=== PATIENT | female | born 1970 | race Caucasian/White ===

== ENCOUNTER 2016-09-08 09:38 | Day surgery (SDC) | payer BC, OTHER ==
[2016-09-08] VITALS (14 sets, daily range): BP systolic 123–176; BP diastolic 77–101; PULSE 68–86; RESP 6–27; Ht 154.9 cm; Wt 56.7 kg
[~2016-09-08] VITALS: Ht 154.9 cm; Wt 56.7 kg
[2016-09-08] MEDS ORDERED: OXYC-279 PO (10:09)
[2016-09-08] MEDS ORDERED: TRAM-40 PO (10:09)
--- NOTE | 2016-09-08 10:19 | HPN ---
Date/Time of Note Date/Time of Note DATE: 09/08/16 TIME: 10:19 Interval H&P Admission Note Pt. seen H&P reviewed: No system changes MELYSSA VERAS Sep 08, 2016 10:19
[2016-09-08] MEDS ORDERED: MIDAZOLAM 1 MG/ML 2 ML INJ ONE ×2 (11:29→13:30)
[2016-09-08] MEDS ORDERED: PROPOFOL 20 ML ONE (11:29)
[2016-09-08] MEDS ORDERED: FENTAnyl 50 MCG/ML VIAL ONE ×3 (11:37→13:21)
[2016-09-08] MEDS ORDERED: DEXAMETHASONE 4 MG/ML 1 ML INJ ONE ×2 (11:41→12:49)
[2016-09-08] MEDS ORDERED: ONDANSETRON 4 MG INJ ONE (11:41)
[2016-09-08] MEDS ORDERED: BUPIVACAINE 0.5% (SDV) 30 ML INJ ONE (11:50)
[2016-09-08] MEDS ORDERED: HYDROmorphONE 2 MG/ML SYG ONE (12:28)
[2016-09-08] MEDS ORDERED: ROPIVACAINE 0.5 % 30 ML VIAL ONE (12:48)
[2016-09-08] MEDS ORDERED: ONDANSETRON 4 MG INJ IV PRN (13:00)
[2016-09-08] MEDS ORDERED: HYDROmorphONE (0.2 MG/ML) 10ML SYG IV PRN ×2 (13:00)
[2016-09-08] MEDS ORDERED: KETOROLAC 30 MG INJ ONE (13:21)
--- NOTE | 2016-09-08 15:44 | RADRPT ---
PROCEDURE: Intraoperative imaging of the right wrist with fluoroscopy. CLINICAL INDICATION: Right wrist pain. Fracture. Intraoperative. TECHNIQUE: 33 images of the right wrist were obtained in the operating room with an image intensif ier. No radiologist was in attendance. 1.11 minutes of fluoroscopy time was used. COMPARISON: No prior study is available for comparison. FINDINGS: Images demonstrate open reduction and internal fixation of the distal radius with a plate and multip le screws. IMPRESSION: 1. Intraoperative imaging of the right wrist. RPTAT: QQ .Chuy Crenshaw MD, MD Date Time Electronically viewed and signed by .Chuy Crenshaw MD, on 09/08/2016 15:44 .R/
--- NOTE | 2016-09-08 16:03 | OPR ---
DATE OF OPERATION: 09/08/2016 SURGEON: MELYSSA VERAS MD. ANESTHESIA: General anesthesia with local and a postoperative peripheral nerve block. PREOPERATIVE DIAGNOSES: 1. Right intra-articular distal radius fracture, 3 or more fragments. 2. Right carpal tunnel syndrome. POSTOPERATIVE DIAGNOSES: 1. Right intra-articular distal radius fracture, 3 or more fragments. 2. Right carpal tunnel syndrome. PROCEDURE 1. Open reduction internal fixation of right distal radius fracture, intra-articular, 3 or more fra gments. 2. Right carpal tunnel release, open. OPERATIVE FINDINGS: Displaced and dorsally angulated intra-articular distal radius fracture with sw elling throughout the wrist. INDICATION: This is a 46-year-old female who suffered a right wrist injury. She was seen in clinic and diagnosed with a displaced distal radius fracture. Due to the alignment of the fracture, we di scussed the options and the patient elected to proceed with surgical fixation understanding the risk s and benefits. She also had numbness in the right hand and due to the chronic nature of the injury , I thought it was best to also release the carpal tunnel at the same time. The patient elected to proceed with that procedure as well understanding the risks and benefits. DESCRIPTION OF PROCEDURE: The patient was seen in the preoperative area and all of their questions were answered. Again, she gave informed consent understanding risks and benefits. She was taken to operative suite and placed in supine position. She was placed under general anesthesia, and tourni quet placed in the right upper extremity. Right upper extremity was prepped with ChloraPrep stick a nd draped in the usual sterile fashion. Ancef 2 grams administered and Esmarch bandage was used to exsanguinate the extremity and tourniquet inflated to 250 mmHg. A modified volar Law approach to the distal radius was utilized with sharp dissection carried down through skin and subcutaneous tiss ue. The FCR tendon was identified and the sheath was incised along its radial border. The FCR tend on was retracted ulnarly and the FCR subsheath was incised. The FPL tendon was bluntly swept ulnarl y and the pronator quadratus was identified. The pronator quadratus was incised along its radial an d distal border. Bovie electrocautery as well as an elevator was used to elevate the muscle off of the distal radius and the fracture site was identified. A Bock elevator was used to reestablish th e fracture site as the fracture had some early callus formation as it was 4 weeks old. After the fr acture was mobilized, it was reduced and a [employer] distal radius plate was placed. A cortical scre w was placed in the shaft as well as a cortical and locking screw in the distal fragment. X-ray jessi ging confirmed appropriate hardware positioning and bony alignment and additional cortical and locki ng screws were placed. Final x-ray imaging confirmed near anatomic alignment and appropriate hardwa re position. Wound was copiously irrigated and skin closed with 4-0 nylon. Attention was then turn ed to the carpal tunnel release and a 2 cm incision at the base of the palm was utilized with sharp dissection carried down through skin and subcutaneous tissue. The palmar aponeurosis was identified and was incised along its ulnar border. The retractors were deepened and the transverse carpal lig ament was identified and was incised approximately 3 mm radial to the hook of the hammock. A JbGeni l retractor was used distally to visualize the transverse carpal ligament was divided under direct v isualization. Attention was then turned proximally and scissor divided the antebrachial fascia off of the transverse carpal ligament. The ligament was directly visualized and was incised along its u lnar border. Wound was copiously irrigated and skin closed with 4-0 nylon. Xeroform was placed ove r the wounds followed by sterile gauze, Webril, and a short arm splint. The fracture was visualized prior to closure and was found to be quite stable with flexion and extension of the wrist with flex ion to 70 degrees and extension to 60. Short arm splint was placed and the tourniquet was deflated after 62 minutes. The patient was awakened from anesthesia and taken to the postoperative suite in stable condition and tolerated the procedure well without complication. SPECIMENS: None. ESTIMATED BLOOD LOSS: 5 mL. COUNTS: Sponge, instrument, needle counts correct. TOURNIQUET TIME: 62 minutes. FLUOROSCOPIC IMAGES: 15. Fluoro time 0.16 seconds. CONDITION ON DISCHARGE: Stable. Dictated By: MELYSSA DE LA ROSA/EMMY Conf#: [id number] DID#: [id number]
== END 2016-09-08 15:57 | disposition home or self-care (01) ==
LOC: SDS 09:38
PROVIDERS: ATTEND Orthopaedic Surgery Hand Surgery
DX: S52.571D Other intraarticular fracture of lower end of right radius, subsequent encounter for closed fracture with routine healing (principal); X58.XXXD Exposure to other specified factors, subsequent encounter; G56.01 Carpal tunnel syndrome, right upper limb; E11.9 Type 2 diabetes mellitus without complications
CPT/HCPCS: 25608; 64721; 73090; 82962; J1100; J1170; J1885; J2250; J2405; J2795; J3010; Z7512; Z7610